=== PATIENT | male | born 1940 | race African-American/Black ===

== ENCOUNTER 2019-07-20 02:31 | Emergency (ER) | payer BC, OTHER ==
[2019-07-20 03:32] VITALS: BMI 25.4
--- NOTE | 2019-07-20 04:04 | PDOC ---
History of Present Illness - General Chief Complaint: Vomiting/Diarrhea Stated Complaint: VOMITING,DIARRHEA History Source: Patient - History of Present Illness Initial Comments: 07/20/19 04:29 79 year old male c/o nausea vomiting diarrhea since 2.30 pm after eating steak sandwich at a local deli. reports diarrhea start few hours after vomiting started. denies abdominal pain. reports some cramping prior to vomiting. reports that she gave imodium at home, patient vomited shortly after. pMHX: hypertension, hypercholesterol, low back surgery 07/20/19 04:41 Past History - Past Medical History Allergies/Adverse Reactions: Allergies Allergy/AdvReac Type Severity Reaction Status Date / Time Penicillins Allergy Verified 07/20/19 03:28 Home Medications: Ambulatory Orders Bisoprolol Fumarate/Hctz [Bisoprolol-Hctz 5-6.25 mg Tab] 1 each PO DAILY Perindopril Erbumine 4 mg PO DAILY 05/18/12 Pregabalin [Lyrica] 75 mg PO BID 05/18/12 Zolpidem Tartrate [Ambien] 10 mg PO DAILY 05/18/12 Amlodipine Besylate [Norvasc -] 5 mg PO DAILY 03/07/16 HTN: Yes - Surgical History Abdominal Surgery: Yes (hernia repair) Orthopedic Surgery: Yes (KNEE SURGERY) - Suicide/Smoking/Psychosocial Hx Smoking Status: No Smoking History: Current some day smoker Years of Tobacco Use: 26 Have you smoked in the past 12 months: Yes Number of Cigarettes Smoked Daily: 0 If you are a former smoker, when did you quit?: PT HAS AN OCCASIONAL CIGAR Cigars Per Day: 1 Information on smoking cessation initiated: No Hx Alcohol Use: Yes Drug/Substance Use Hx: No Substance Use Type: None Review of Systems - Review of Systems Able to Perform ROS?: Yes Is the patient limited Kazakh proficient: No ABD/GI: Yes: Diarrhea, Nausea, Vomiting : No: Symptoms Reported, See HPI, Burning, Dysuria, Discharge, Frequency, Flank Pain, Hematuria, Incontinence, Pain, Urgency, Testicular Mass, Testicular Swelling, Lesions, Testicular Pain, Other Musculoskeletal: No: Symptoms Reported, See HPI, Back Pain, Gout, Joint Pain, Joint Swelling, Muscle Pain, Muscle Weakness, Neck Pain, Joint Stiffness, Other *Physical Exam - Vital Signs Last Vital Signs Temp Pulse Resp BP Pulse Ox 97.7 F 88 19 152/75 97 07/20/19 02:31 07/20/19 02:31 07/20/19 02:31 07/20/19 02:31 07/20/19 02:31 - Physical Exam General Appearance: Yes: Appropriately Dressed Respiratory/Chest: positive: Lungs Clear, Normal Breath Sounds Cardiovascular: positive: Regular Rhythm, Regular Rate, Murmur Gastrointestinal/Abdominal: positive: Soft, Increased Bowel Sounds. negative: Tender Musculoskeletal: positive: Normal Inspection Extremity: positive: Normal Capillary Refill, Normal Inspection, Normal Range of Motion Integumentary: positive: Normal Color, Dry, Warm Neurologic: positive: Fully Oriented, Alert Heart Score/ECG Review - History History: Slightly suspicious - Electrocardiogram EKG: Normal - Age Age: >/= 65 - Risk Factors Risk Factors Heart Score: Yes Hx Hypercholesterolemia, Yes Hx Hypertension Based on the list above the patient has:: 1-2 risk factors - Troponin Troponin: </= normal limit - Score Heart Score - Total: 3 - ECG Intrepretation Rhythm: Regular Rhythm Comment:: 07/20/19 06:05 Sinus rhythm with 1st degree AV block ED Treatment Course - LABORATORY CBC & Chemistry Diagram: 07/20/19 04:30 07/20/19 04:30 Progress Note - Progress Note Progress Note: A: Gastroenteritis P: cbc cmp cardiac EKG UA Medical Decision Making - Medical Decision Making 07/20/19 05:36 PO challenging 07/20/19 06:07 currently PO challenging. feeling better. will d/c home *DC/Admit/Observation/Transfer Diagnosis at time of Disposition: Gastroenteritis - Discharge Dispostion Disposition: HOME Condition at time of disposition: Fair - Referrals - Patient Instructions Printed Discharge Instructions: Gastroenteritis Diet Additional Instructions: drink plenty of fluids start a BRAT ( bananas, rice apples toast) follow up with your doctor as soon as possible. return to the ER if symptoms worsen - Post Discharge Activity
[2019-07-20] MEDS ORDERED: SODIUM CHLORIDE 0.9% 500 ML INFUS.BAG IV ONE (04:05)
[2019-07-20] MEDS ORDERED: ONDANSETRON 4 MG/2 ML VIAL IVPB ONE (04:05)
--- NOTE | 2019-07-20 04:13 | PDOC ---
*Physical Exam - Vital Signs Last Vital Signs Temp Pulse Resp BP Pulse Ox 97.7 F 88 19 152/75 97 07/20/19 02:31 07/20/19 02:31 07/20/19 02:31 07/20/19 02:31 07/20/19 02:31 ED Treatment Course - LABORATORY CBC & Chemistry Diagram: 07/20/19 04:30 07/20/19 04:30 Medical Decision Making - Medical Decision Making 07/20/19 04:13 Patient seen by the advanced practice provider under my direct supervision. Ancillary testing reviewed as necessary. I agree with plan as outlined by the advanced practice provider. *DC/Admit/Observation/Transfer Diagnosis at time of Disposition: Gastroenteritis - Discharge Dispostion Disposition: HOME Condition at time of disposition: Fair - Referrals - Patient Instructions Printed Discharge Instructions: Gastroenteritis Diet Additional Instructions: drink plenty of fluids start a BRAT ( bananas, rice apples toast) follow up with your doctor as soon as possible. return to the ER if symptoms worsen - Post Discharge Activity
[2019-07-20] MEDS ORDERED: ONDANSETRON 4 MG/2 ML VIAL ONE (04:23)
[2019-07-20 04:53] LABS: BASO % 0.4 % (0-2.0); EOS % 0.1 % (0-4.5); HEMATOCRIT 48.6 % (35.4-49); HEMOGLOBIN 15.6 GM/dL (11.7-16.9); LYMPH % 19.7 % (8-40); MCH 27.1 pg (25.7-33.7); MCHC 32.1 g/dl (32.0-35.9); MEAN CELL VOLUME 84.3 fl (80-96); MEAN PLT VOLUME 11.3 fl (7.5-11.1); MONO % 10.1 % (3.8-10.2); NEUT % 69.7 % (42.8-82.8); PLATELET COUNT 168 K/MM3 (134-434); RBC 5.77 M/mm3 (4.00-5.60); RDW 15.4 % (11.9-15.9); WHITE BLOOD COUNT 7.3 K/mm3 (4.0-10.0)
[2019-07-20 05:00] LABS: EPI CELLS 1.7 /HPF (0-5/HPF); HYALINE CASTS 16 /lpf (0-8); PH,URINE 5.5 (5.0-8.0); URINE APPEARANCE CLEAR; URINE BILIRUBIN NEGATIVE (NEGATIVE); URINE COLOR DK YELLOW; URINE GLUCOSE (UA) NEGATIVE (NEGATIVE); URINE KETONE 1+ (NEGATIVE); URINE LEUK ESTERASE NEGATIVE (NEGATIVE); URINE NITRITE NEGATIVE (NEGATIVE); URINE PROTEIN 1+ (NEGATIVE); URINE RBC 8 /hpf (0-4); URINE UROBILINOGEN 0.2 mg/dL (0.2-1.0); URINE WBC 1 /hpf (0-5)
[2019-07-20 05:14] LABS: ALBUMIN 4.1 g/dl (3.4-5.0); BILIRUBIN,TOTAL 0.4 mg/dL (0.2-1); BLOOD UREA NITROGEN 18.2 mg/dL (7-18); POTASSIUM 4.1 mmol/L (3.5-5.1); TOT PROT 8.2 g/dl (6.4-8.2)
[2019-07-20 05:15] LABS: LIPASE 100 U/L (73-393)
[2019-07-20 06:44] VITALS: BP 124/80; PULSE 67; TEMP 98.1
--- NOTE | 2019-07-20 10:57 | EKG ---
Test Reason : Blood Pressure : / mmHG Vent. Rate : 064 BPM Atrial Rate : 064 BPM P-R Int : 212 ms QRS Dur : 104 ms QT Int : 444 ms P-R-T Axes : 060 -47 -10 degrees QTc Int : 458 ms SINUS RHYTHM WITH 1ST DEGREE A-V BLOCK LEFT ANTERIOR FASCICULAR BLOCK T WAVE ABNORMALITY, CONSIDER ANTERIOR ISCHEMIA ABNORMAL ECG WHEN COMPARED WITH ECG OF 07-MAR-2016 11:45, T WAVE INVERSION NOW EVIDENT IN ANTERIOR LEADS Confirmed by Dylan Cummings ([id number]) on 07/20/2019 10:56:51 AM Referred By: Confirmed By:Dylan Cummings
== END 2019-07-20 06:46 | disposition home or self-care (01) ==
LOC: JER 02:31
PROC: 3E033GC Introduction of Other Therapeutic Substance into Peripheral Vein, Percutaneous Approach (ICD-10-PCS; principal; 2019-07-20)
DX: K52.9 Noninfective gastroenteritis and colitis, unspecified (principal); I10 Essential (primary) hypertension; E78.00 Pure hypercholesterolemia, unspecified; Z72.0 Tobacco use
CPT/HCPCS: 36415; 80053; 81003; 83690; 84484; 85025; 93005; 93010; 99283-25

== ENCOUNTER 2020-12-25 20:19 | Emergency (ER) | payer OTHER ==
[2020-12-25 20:36] VITALS: PULSE 90; TEMP 98.3; BMI 27.2
[2020-12-25] MEDS ORDERED: SODIUM CHLORIDE 0.9% 500 ML INFUS.BAG IV ONE (21:33)
[2020-12-25 21:53] LABS: BASO % 0.9 % (0-2.0); EOS % 2.3 % (0-4.5); HEMATOCRIT 39.9 % (35.4-49); HEMOGLOBIN 12.7 GM/dL (11.7-16.9); LYMPH % 42.7 % (8-40); MCH 26.9 pg (25.7-33.7); MCHC 31.9 g/dl (32.0-35.9); MEAN CELL VOLUME 84.3 fl (80-96); MEAN PLT VOLUME 10.6 fl (7.5-11.1); MONO % 13.3 % (3.8-10.2); NEUT % 40.8 % (42.8-82.8); PLATELET COUNT 161 K/MM3 (134-434); RBC 4.74 M/mm3 (4.00-5.60); RDW 16.7 % (11.9-15.9); WHITE BLOOD COUNT 6.4 K/mm3 (4.0-10.0)
[2020-12-25 22:08] LABS: POTASSIUM 4.3 mmol/L (3.5-5.1)
[2020-12-25 22:10] LABS: ALBUMIN 3.4 g/dl (3.4-5.0)
[2020-12-25 22:14] LABS: CREATININE 0.7 mg/dL (0.55-1.3)
[2020-12-25 22:15] LABS: BILIRUBIN,TOTAL 0.2 mg/dL (0.2-1); TOT PROT 7.1 g/dl (6.4-8.2)
[2020-12-26 00:27] VITALS: BP 152/90
== END 2020-12-26 00:28 | disposition home or self-care (01) ==
LOC: JER 20:19
DX: R10.30 Lower abdominal pain, unspecified (principal)
CPT/HCPCS: 36415; 74177-TC; 80053; 83605; 85025; 99285-25; Q9967

== ENCOUNTER 2022-09-21 20:56 | Emergency (ER) | payer OTHER ==
[2022-09-21 21:11] VITALS: BP 120/76; PULSE 76; RESP 20; TEMP 97.5; BMI 30.1
== END 2022-09-22 01:57 | disposition home or self-care (01) ==
LOC: JER 20:56
DX: M54.50 Low back pain, unspecified (principal); V49.40XA Driver injured in collision with unspecified motor vehicles in traffic accident, initial encounter
CPT/HCPCS: 99281-25

== ENCOUNTER 2025-02-19 11:52 | Emergency (ER) | payer OTHER ==
[2025-02-19 12:10] VITALS: BP 144/79; PULSE 70; RESP 18; TEMP 98; BMI 26.5
== END 2025-02-19 13:35 | disposition home or self-care (01) ==
LOC: JER 11:52
DX: R20.2 Paresthesia of skin (principal); R20.0 Anesthesia of skin; M54.2 Cervicalgia; M25.512 Pain in left shoulder
CPT/HCPCS: 93005; 93010; 99283-25